=== PATIENT | male | born 1950 | race Caucasian/White ===

== ENCOUNTER 2017-02-01 05:30 | Day surgery (SDC) | payer MEDICARE, BC ==
[2017-01-31 10:32] LABS: BASOPHILS 0.4 % (0-2); EOSINOPHILS 1.7 % (0-7); HEMOGLOBIN 13.6 g/dL (13.5-17.5); LYMPHOCYTES 32.6 % (15-50); MCH 31.9 pg (26.0-34.0); MCV 93.7 fL (80.0-100.0); MEAN PLATELET VOLUME 12.5 fL (7.4-10.4); NEUTROPHILS 56.3 % (40-80); PLATELET COUNT 146 10x3/uL (130-400); RBC 4.27 10x6/uL (4.20-6.10); RDW 13.3 % (11.5-14.5); WBC 4.7 10x3/uL (4.8-10.8)
[2017-01-31 11:02] LABS: INR 0.97 (0.85-1.17); PROTIME 12.6 SECONDS (11.6-15.0)
[2017-01-31 11:04] LABS: APTT 25.2 SECONDS (22.8-39.4)
[~2017-02-01] VITALS: Ht 185.4 cm; Wt 90.7 kg
[~2017-02-01 05:30] MED LIST: MINOCIN50 MG PO
[2017-02-01 05:50] VITALS: BP 138/79; Ht 185.4 cm; Wt 90.7 kg
[2017-02-01] MEDS ORDERED: TYLENOL W/CODEI1 TAB PO (09:23)
--- NOTE | 2017-02-01 10:22 | NUR ---
C/O PAIN AFTER GETTING UP TO VOID, STATES BURNING PAIN IS SCROTUM. TYLENOL #3 X2 PO FOR C/O PAIN "9". VOIDED WITHOUT DIFFICULTY, NO BLOOD IN URINE. STATES GETS NAUSEATED SOMETIMES WITH PAIN MEDS AND HAS A LONG RIDE PAST [employer], ZOFRAN 4MG SLOW IVP GIVEN PER REQUEST.
--- NOTE | 2017-02-01 10:40 | NUR ---
STATES FEELS BETTER, PAIN LEVEL NOW A 2-3. DENIES NAUSEA. IV REMOVED INTACT. DISCHARGED HOME.
== END 2017-02-01 10:40 | disposition home or self-care (01) ==
LOC: D.OPS 05:30 → D.PAN 07:30 → D.OPS 07:30
PROVIDERS: Anesthesiology
DX: N43.3 Hydrocele, unspecified (principal); N44.8 Other noninflammatory disorders of the testis; Z01.812 Encounter for preprocedural laboratory examination